=== PATIENT | male | born 1970 | race Caucasian/White ===

== ENCOUNTER 2017-11-21 18:45 | Observation (INO) ==
[2017-11-21] MEDS ORDERED: NITROGLYCERIN SL 0.4 MG TABLET SL PRN (21:12)
[2017-11-21] MEDS: ROSUVASTATIN 10 MG TABLET PO SCH (22:02)
[2017-11-21] MEDS: CARVEDILOL 25 MG TABLET PO SCH (22:02)
[2017-11-21] MEDS: MORPHINE 4 MG/1 ML VIAL IV PRN (22:03)
[2017-11-21] MEDS: ONDANSETRON 4 MG/2 ML VIAL IV PRN (22:03)
[2017-11-22] MEDS: MORPHINE 4 MG/1 ML VIAL IV PRN ×3 (02:22→20:45)
[2017-11-22] MEDS: ONDANSETRON 4 MG/2 ML VIAL IV PRN ×2 (02:23→06:09)
[2017-11-22 03:17] LABS: Basophils % 0.5 % (0.0-0.8); Eosinophils # 0.3 10*3/uL (0.0-0.87); Eosinophils % 3.5 % (0.00-10.9); Hematocrit 37.8 VOL% (42.0-52.0); Immature Granulocytes % 0.4 %; Immature Granulocytes Absolute 0.03 #; Lymphocytes # 2.8 10*3/uL (1.4-4.0); Lymphocytes % 34.1 % (21.2-54.2); Mean Corpuscular HGB Conc 34.4 GM/DL (32-36); Mean Corpuscular Hemoglobin 26 PG (27-34); Mean Corpuscular Volume 76.1 FL (87-102); Mean Platelet Volume 10.5 FL (9.6-12.0); Monocytes # 1.1 10*3/uL (0.11-0.8); Monocytes % 13.9 % (1.7-12.7); Neutrophils # 3.9 10*3/uL (1.4-7.4); Neutrophils % 47.6 % (38.7-73.9); Platelet Count 356 T/CUMM (130-400); Red Blood Count 4.97 MC/CUMM (3.8-5.5); Red Cell Distribution Width 14.6 % (9.3-17.3); White Blood Count 8.2 T/CUMM (4-12)
[2017-11-22 04:07] LABS: Calcium 8.5 MG/DL (8.5-10.1); Osmolality,Calculated 275.7 MOS/KG (273-304); Risk Ratio 4.47; Thyroid Stimulating Hormone 9.56 uIU/ml (0.358-3.74); VLDL CHOLESTEROL 33.2 MG/DL
[2017-11-22] MEDS: CLOPIDOGREL 75 MG TABLET PO SCH (08:45)
[2017-11-22] MEDS: ISOSORBIDE MONONITRATE 30 MG TABLET PO SCH (08:45)
[2017-11-22] MEDS: ASPIRIN EC 81 MG TABLET PO SCH (08:45)
[2017-11-22] MEDS: LISINOPRIL 5 MG TABLET PO SCH (08:46)
[2017-11-22] MEDS: CARVEDILOL 25 MG TABLET PO SCH ×2 (08:46→20:47)
[2017-11-22] MEDS ORDERED: ENOXAPARIN 40 MG/0.4 ML SYRINGE SUBCUT SCH (09:00)
[2017-11-22] MEDS ORDERED: DIAZEPAM 5 MG TABLET PO ONE (09:41)
[2017-11-22] MEDS ORDERED: POTASSIUM CHLORIDE RIDER 10 MEQ in PREMIX 1 EACH IV PRN (09:41)
[2017-11-22] MEDS ORDERED: MAGNESIUM SULF RIDER 2 GM in PREMIX 1 EACH IV PRN (09:41)
[2017-11-22] MEDS ORDERED: diphenhydrAMINE CAP 25 MG CAPSULE PO ONE (09:41)
[2017-11-22] MEDS ORDERED: SODIUM CHLORIDE 0.9% 1,000 ML IV SCH (10:00)
[2017-11-22] MEDS ORDERED: LIDOCAINE 1% 20 ML VIAL ONE (12:55)
[2017-11-22] MEDS ORDERED: MIDAZOLAM 2 MG/2 ML VIAL ONE (13:39)
[2017-11-22] MEDS ORDERED: MEPERIDINE 25 MG/1 ML VIAL ONE ×2 (13:39→13:57)
[2017-11-22] MEDS: FUROSEMIDE 40 MG/4 ML VIAL IV SCH (18:39)
[2017-11-22] MEDS: ROSUVASTATIN 10 MG TABLET PO SCH (20:47)
[2017-11-23 04:56] LABS: Basophils # 0.1 10*3/uL (0.0-0.2); Basophils % 0.7 % (0.0-0.8); Eosinophils # 0.4 10*3/uL (0.0-0.87); Eosinophils % 4.9 % (0.00-10.9); Hemoglobin 11.8 GM/DL (14.0-18.0); Immature Granulocytes % 0.4 %; Immature Granulocytes Absolute 0.03 #; Lymphocytes # 1.9 10*3/uL (1.4-4.0); Lymphocytes % 27.3 % (21.2-54.2); Mean Corpuscular HGB Conc 31.9 GM/DL (32-36); Mean Corpuscular Hemoglobin 25 PG (27-34); Mean Corpuscular Volume 78.4 FL (87-102); Mean Platelet Volume 10.6 FL (9.6-12.0); Monocytes % 13.8 % (1.7-12.7); Neutrophils # 3.7 10*3/uL (1.4-7.4); Neutrophils % 52.9 % (38.7-73.9); Platelet Count 291 T/CUMM (130-400); Red Blood Count 4.72 MC/CUMM (3.8-5.5); Red Cell Distribution Width 14.1 % (9.3-17.3); White Blood Count 7.1 T/CUMM (4-12)
[2017-11-23 05:27] LABS: Calcium 8.5 MG/DL (8.5-10.1); Osmolality,Calculated 273.8 MOS/KG (273-304); Potassium 4.2 MMOL/L (3.5-5.1)
[2017-11-23] MEDS ORDERED: ROSUVASTATIN 20 MG TABLET PO SCH (08:03)
[2017-11-23] MEDS: CARVEDILOL 25 MG TABLET PO SCH (08:07)
[2017-11-23] MEDS: ISOSORBIDE MONONITRATE 30 MG TABLET PO SCH (08:07)
[2017-11-23] MEDS: CLOPIDOGREL 75 MG TABLET PO SCH (08:07)
[2017-11-23] MEDS: LISINOPRIL 5 MG TABLET PO SCH (08:08)
[2017-11-23] MEDS: FUROSEMIDE 40 MG/4 ML VIAL IV SCH (08:08)
[2017-11-23] MEDS: ASPIRIN EC 81 MG TABLET PO SCH (08:08)
[2017-11-23] MEDS ORDERED: FUROSEMIDE 40 MG TABLET PO SCH (09:00)
[2017-11-23 12:01] VITALS: BP 93/52
== END 2017-11-23 13:07 | disposition home or self-care (01) ==
LOC: INTOOBSV 19:53 → N.TELEN 19:53 → SUATTDRO 19:53
PROVIDERS: ADMIT Internal Medicine; ATTEND Internal Medicine
PROC: CLCCHCL (ICD-10-PCS; 2017-11-22 13:45)

== ENCOUNTER 2018-10-11 11:37 | Inpatient (IN) ==
[2018-10-11] MEDS ORDERED: NITROGLYCERIN SL 0.4 MG TABLET SL ONE (11:41)
[2018-10-11] MEDS ORDERED: ASPIRIN 325 MG TABLET ONE (11:41)
[2018-10-11] MEDS ORDERED: METOPROLOL TARTRATE 5 MG/5 ML VIAL IV STA (11:43)
[2018-10-11] MEDS ORDERED: ENOXAPARIN 100 MG/ML SYRINGE SUBCUT STA (11:43)
[2018-10-11] MEDS: NITROGLYCERIN SL 0.4 MG TABLET SL PRN ×2 (11:43→11:50)
[2018-10-11] MEDS ORDERED: ASPIRIN 325 MG TABLET PO STA (11:43)
[2018-10-11 11:58] LABS: Basophils # 0.1 10*3/uL (0.0-0.2); Basophils % 0.6 % (0.0-0.8); Eosinophils # 0.5 10*3/uL (0.0-0.87); Eosinophils % 3.8 % (0.00-10.9); Hematocrit 46.7 VOL% (42.0-52.0); Hemoglobin 14.6 GM/DL (14.0-18.0); Immature Granulocytes % 0.5 %; Immature Granulocytes Absolute 0.07 #; Lymphocytes # 2.7 10*3/uL (1.4-4.0); Mean Corpuscular HGB Conc 31.3 GM/DL (32-36); Mean Corpuscular Hemoglobin 24 PG (27-34); Mean Corpuscular Volume 76.8 FL (87-102); Mean Platelet Volume 10.3 FL (9.6-12.0); Monocytes % 6.8 % (1.7-12.7); Neutrophils # 9.7 10*3/uL (1.4-7.4); Neutrophils % 69.3 % (38.7-73.9); Platelet Count 426 T/CUMM (130-400); Red Blood Count 6.08 MC/CUMM (3.8-5.5); Red Cell Distribution Width 17.9 % (9.3-17.3)
[2018-10-11 12:06] LABS: INR 1.1; PT Patient Result 11.4 SECS
[2018-10-11 12:23] LABS: Albumin 3.8 G/DL (3.4-5.0); Osmolality,Calculated 276.7 MOS/KG (273-304); Potassium 4.9 MMOL/L (3.5-5.1)
[2018-10-11] MEDS ORDERED: LEVOFLOXACIN INJ 500 MG in PREMIX 1 EACH IV STA (13:01)
[2018-10-11] MEDS ORDERED: NITROGLYCERIN SL 0.4 MG TABLET SL PRN (13:13)
[2018-10-11] MEDS ORDERED: ONDANSETRON 4 MG/2 ML VIAL IV PRN (17:13)
[2018-10-11] MEDS ORDERED: ZALEPLON 5 MG CAPSULE PO PRN (17:13)
[2018-10-11] MEDS ORDERED: INFLUENZA VIRUS VACCINE 0.5 ML SYRINGE IM ONE (17:22)
[2018-10-11] MEDS: ISOSORBIDE MONONITRATE 30 MG TABLET PO SCH (17:51)
[2018-10-11] MEDS: CARVEDILOL 25 MG TABLET PO SCH ×2 (17:51→22:32)
[2018-10-11] MEDS: RANOLAZINE 500 MG TABLET PO SCH ×2 (17:52→22:33)
[2018-10-11] MEDS: PANTOPRAZOLE 40 MG TABLET PO SCH (17:53)
[2018-10-11] MEDS: SODIUM CHLORIDE 0.9% 1,000 ML IV SCH (17:55)
[2018-10-11] MEDS: methylPREDNISolone SOD SUC 40 MG/1 ML VIAL IV SCH (22:29)
[2018-10-11] MEDS: ROSUVASTATIN 10 MG TABLET PO SCH (22:29)
[2018-10-12] MEDS: SODIUM CHLORIDE 0.9% 1,000 ML IV SCH (02:21)
[2018-10-12 04:59] LABS: Basophils % 0.2 % (0.0-0.8); Eosinophils % 0.2 % (0.00-10.9); Hematocrit 38.6 VOL% (42.0-52.0); Immature Granulocytes % 0.6 %; Immature Granulocytes Absolute 0.05 #; Lymphocytes # 0.7 10*3/uL (1.4-4.0); Lymphocytes % 8.8 % (21.2-54.2); Mean Corpuscular HGB Conc 31.1 GM/DL (32-36); Mean Corpuscular Hemoglobin 24 PG (27-34); Monocytes # 0.1 10*3/uL (0.11-0.8); Monocytes % 1.4 % (1.7-12.7); Neutrophils # 7.4 10*3/uL (1.4-7.4); Neutrophils % 88.8 % (38.7-73.9); Platelet Count 348 T/CUMM (130-400); Red Blood Count 5.01 MC/CUMM (3.8-5.5); Red Cell Distribution Width 16.5 % (9.3-17.3)
[2018-10-12 05:01] LABS: White Blood Count 8.4 T/CUMM (4-12)
[2018-10-12 05:02] LABS: Calcium 8.4 MG/DL (8.5-10.1); Osmolality,Calculated 272.4 MOS/KG (273-304); Potassium 4.6 MMOL/L (3.5-5.1)
[2018-10-12 05:16] LABS: Risk Ratio 3.47; Thyroid Stimulating Hormone 2.32 uIU/ml (0.358-3.74); VLDL CHOLESTEROL 15.8 MG/DL
[2018-10-12] MEDS ORDERED: FUROSEMIDE 20 MG TABLET PO SCH (09:00)
[2018-10-12] MEDS: methylPREDNISolone SOD SUC 40 MG/1 ML VIAL IV SCH ×2 (09:44→21:01)
[2018-10-12] MEDS: ASPIRIN EC 81 MG TABLET PO SCH (09:50)
[2018-10-12] MEDS: ISOSORBIDE MONONITRATE 30 MG TABLET PO SCH (09:50)
[2018-10-12] MEDS: LISINOPRIL 5 MG TABLET PO SCH (09:51)
[2018-10-12] MEDS: PANTOPRAZOLE 40 MG TABLET PO SCH (09:51)
[2018-10-12] MEDS: RANOLAZINE 500 MG TABLET PO SCH ×2 (09:51→21:03)
[2018-10-12] MEDS: ENOXAPARIN 40 MG/0.4 ML SYRINGE SUBCUT SCH (09:51)
[2018-10-12] MEDS: CLOPIDOGREL 75 MG TABLET PO SCH (09:51)
[2018-10-12] MEDS: CARVEDILOL 25 MG TABLET PO SCH ×2 (09:51→21:33)
[2018-10-12] MEDS: LEVOFLOXACIN INJ 500 MG in PREMIX 1 EACH IV SCH (11:04)
[2018-10-12] MEDS ORDERED: FUROSEMIDE 40 MG/4 ML VIAL IV ONE (11:43)
[2018-10-12] MEDS: FUROSEMIDE 40 MG/4 ML VIAL IV SCH (17:19)
[2018-10-12] MEDS: ROSUVASTATIN 10 MG TABLET PO SCH (21:04)
[2018-10-13 04:40] LABS: Basophils % 0.1 % (0.0-0.8); Hematocrit 37.6 VOL% (42.0-52.0); Hemoglobin 11.6 GM/DL (14.0-18.0); Immature Granulocytes % 1.1 %; Immature Granulocytes Absolute 0.21 #; Lymphocytes # 0.9 10*3/uL (1.4-4.0); Mean Corpuscular HGB Conc 30.9 GM/DL (32-36); Mean Corpuscular Hemoglobin 24 PG (27-34); Mean Corpuscular Volume 76.9 FL (87-102); Mean Platelet Volume 10.8 FL (9.6-12.0); Monocytes # 0.6 10*3/uL (0.11-0.8); Monocytes % 3.4 % (1.7-12.7); Neutrophils # 16.8 10*3/uL (1.4-7.4); Neutrophils % 90.4 % (38.7-73.9); Platelet Count 350 T/CUMM (130-400); Red Blood Count 4.89 MC/CUMM (3.8-5.5); Red Cell Distribution Width 16.7 % (9.3-17.3); White Blood Count 18.6 T/CUMM (4-12)
[2018-10-13 04:59] LABS: Calcium 8.8 MG/DL (8.5-10.1); Osmolality,Calculated 280.8 MOS/KG (273-304); Potassium 3.8 MMOL/L (3.5-5.1)
[2018-10-13] MEDS: methylPREDNISolone SOD SUC 40 MG/1 ML VIAL IV SCH (09:59)
[2018-10-13] MEDS: ENOXAPARIN 40 MG/0.4 ML SYRINGE SUBCUT SCH (09:59)
[2018-10-13] MEDS: LISINOPRIL 5 MG TABLET PO SCH (10:00)
[2018-10-13] MEDS: RANOLAZINE 500 MG TABLET PO SCH ×2 (10:02→21:10)
[2018-10-13] MEDS: ISOSORBIDE MONONITRATE 30 MG TABLET PO SCH (10:04)
[2018-10-13] MEDS: CARVEDILOL 25 MG TABLET PO SCH ×2 (10:04→21:10)
[2018-10-13] MEDS: CLOPIDOGREL 75 MG TABLET PO SCH (10:04)
[2018-10-13] MEDS: PANTOPRAZOLE 40 MG TABLET PO SCH (10:04)
[2018-10-13] MEDS: ASPIRIN EC 81 MG TABLET PO SCH (10:04)
[2018-10-13] MEDS: LEVOFLOXACIN INJ 500 MG in PREMIX 1 EACH IV SCH (10:06)
[2018-10-13] MEDS: FUROSEMIDE 40 MG/4 ML VIAL IV SCH (11:17)
[2018-10-13] MEDS ORDERED: FUROSEMIDE 40 MG TABLET PO SCH (16:00)
[2018-10-13] MEDS: IVABRADINE HCL 5 MG TABLET PO SCH ×2 (17:28→17:33)
[2018-10-13] MEDS: ROSUVASTATIN 10 MG TABLET PO SCH (21:10)
[2018-10-13] MEDS: MORPHINE 4 MG/1 ML VIAL IV PRN (21:17)
[2018-10-14] MEDS: MORPHINE 4 MG/1 ML VIAL IV PRN (04:08)
[2018-10-14 04:32] LABS: Basophils % 0.1 % (0.0-0.8); Hematocrit 40.3 VOL% (42.0-52.0); Hemoglobin 12.7 GM/DL (14.0-18.0); Immature Granulocytes % 1.4 %; Immature Granulocytes Absolute 0.38 #; Lymphocytes # 1.9 10*3/uL (1.4-4.0); Mean Corpuscular HGB Conc 31.5 GM/DL (32-36); Mean Corpuscular Hemoglobin 24 PG (27-34); Mean Corpuscular Volume 76.6 FL (87-102); Monocytes # 1.6 10*3/uL (0.11-0.8); Monocytes % 6.2 % (1.7-12.7); Neutrophils # 22.5 10*3/uL (1.4-7.4); Neutrophils % 85.3 % (38.7-73.9); Platelet Count 415 T/CUMM (130-400); Red Blood Count 5.26 MC/CUMM (3.8-5.5); Red Cell Distribution Width 17.1 % (9.3-17.3); White Blood Count 26.4 T/CUMM (4-12)
[2018-10-14 04:55] LABS: Hypochromasia 1+; Microcytosis Slight; Platelet Estimate Adequate
[2018-10-14 04:56] LABS: Calcium 8.8 MG/DL (8.5-10.1); Osmolality,Calculated 279.7 MOS/KG (273-304); Potassium 3.9 MMOL/L (3.5-5.1)
[2018-10-14] MEDS: CLOPIDOGREL 75 MG TABLET PO SCH (08:55)
[2018-10-14] MEDS: ISOSORBIDE MONONITRATE 30 MG TABLET PO SCH (08:55)
[2018-10-14] MEDS: LISINOPRIL 5 MG TABLET PO SCH (08:55)
[2018-10-14] MEDS: RANOLAZINE 500 MG TABLET PO SCH ×2 (08:55→22:10)
[2018-10-14] MEDS: PANTOPRAZOLE 40 MG TABLET PO SCH (08:56)
[2018-10-14] MEDS: ASPIRIN EC 81 MG TABLET PO SCH (08:56)
[2018-10-14] MEDS: CARVEDILOL 25 MG TABLET PO SCH ×2 (08:56→22:10)
[2018-10-14] MEDS: IVABRADINE HCL 5 MG TABLET PO SCH ×2 (08:56→17:28)
[2018-10-14] MEDS ORDERED: methylPREDNISolone SOD SUC 40 MG/1 ML VIAL IV SCH (09:00)
[2018-10-14] MEDS ORDERED: FUROSEMIDE 40 MG TABLET PO SCH (09:00)
[2018-10-14] MEDS: ENOXAPARIN 40 MG/0.4 ML SYRINGE SUBCUT SCH (09:03)
[2018-10-14] MEDS: LEVOFLOXACIN INJ 500 MG in PREMIX 1 EACH IV SCH (10:00)
[2018-10-14] MEDS: ACETAMINOPHEN 325 MG TABLET PO PRN ×2 (11:57→16:34)
[2018-10-14] MEDS: FUROSEMIDE 40 MG/4 ML VIAL IV SCH (16:35)
[2018-10-14] MEDS: methylPREDNISolone SOD SUC 40 MG/1 ML VIAL IV SCH (17:28)
[2018-10-14] MEDS: ALBUTEROL/IPRATROPIUM 3 ML NEB RESP TX SCH (20:02)
[2018-10-14] MEDS: ROSUVASTATIN 10 MG TABLET PO SCH (22:10)
[2018-10-15] MEDS: methylPREDNISolone SOD SUC 40 MG/1 ML VIAL IV SCH ×3 (00:11→17:38)
[2018-10-15] MEDS: ALBUTEROL/IPRATROPIUM 3 ML NEB RESP TX SCH ×4 (00:43→19:46)
[2018-10-15] MEDS: LISINOPRIL 5 MG TABLET PO SCH ×2 (08:38→21:28)
[2018-10-15] MEDS: IVABRADINE HCL 5 MG TABLET PO SCH ×2 (08:39→17:36)
[2018-10-15] MEDS: ASPIRIN EC 81 MG TABLET PO SCH (08:39)
[2018-10-15] MEDS: CARVEDILOL 25 MG TABLET PO SCH ×2 (08:39→21:28)
[2018-10-15] MEDS: CLOPIDOGREL 75 MG TABLET PO SCH (08:39)
[2018-10-15] MEDS: PANTOPRAZOLE 40 MG TABLET PO SCH (08:39)
[2018-10-15] MEDS: RANOLAZINE 500 MG TABLET PO SCH ×2 (08:39→21:28)
[2018-10-15] MEDS: ISOSORBIDE MONONITRATE 30 MG TABLET PO SCH (08:42)
[2018-10-15] MEDS: ENOXAPARIN 40 MG/0.4 ML SYRINGE SUBCUT SCH (08:44)
[2018-10-15] MEDS: FUROSEMIDE 40 MG/4 ML VIAL IV SCH ×2 (08:48→17:41)
[2018-10-15] MEDS: LEVOFLOXACIN INJ 500 MG in PREMIX 1 EACH IV SCH (09:24)
[2018-10-15] MEDS: ACETAMINOPHEN 325 MG TABLET PO PRN (15:19)
[2018-10-15] MEDS: ROSUVASTATIN 10 MG TABLET PO SCH (21:28)
[2018-10-16] MEDS: methylPREDNISolone SOD SUC 40 MG/1 ML VIAL IV SCH ×2 (00:46→09:16)
[2018-10-16] MEDS: ALBUTEROL/IPRATROPIUM 3 ML NEB RESP TX SCH ×3 (00:55→14:07)
[2018-10-16 04:43] LABS: Basophils % 0.1 % (0.0-0.8); Hematocrit 38.6 VOL% (42.0-52.0); Immature Granulocytes % 1.7 %; Immature Granulocytes Absolute 0.35 #; Lymphocytes # 1.3 10*3/uL (1.4-4.0); Lymphocytes % 6.1 % (21.2-54.2); Mean Corpuscular HGB Conc 31.1 GM/DL (32-36); Mean Corpuscular Hemoglobin 24 PG (27-34); Mean Corpuscular Volume 76.6 FL (87-102); Mean Platelet Volume 11.4 FL (9.6-12.0); Monocytes # 1.2 10*3/uL (0.11-0.8); Neutrophils # 17.9 10*3/uL (1.4-7.4); Neutrophils % 86.1 % (38.7-73.9); Platelet Count 389 T/CUMM (130-400); Red Blood Count 5.04 MC/CUMM (3.8-5.5); Red Cell Distribution Width 17.2 % (9.3-17.3); White Blood Count 20.8 T/CUMM (4-12)
[2018-10-16 05:05] LABS: Calcium 8.5 MG/DL (8.5-10.1); Osmolality,Calculated 285.8 MOS/KG (273-304); Potassium 4.2 MMOL/L (3.5-5.1)
[2018-10-16 05:42] LABS: Hypochromasia 1+; Microcytosis 1+; Ovalocytes Slight
[2018-10-16 05:43] LABS: Platelet Estimate Normal; Target Cells Slight
[2018-10-16] MEDS: PANTOPRAZOLE 40 MG TABLET PO SCH (09:13)
[2018-10-16] MEDS: ISOSORBIDE MONONITRATE 30 MG TABLET PO SCH (09:13)
[2018-10-16] MEDS: LISINOPRIL 5 MG TABLET PO SCH (09:13)
[2018-10-16] MEDS: CARVEDILOL 25 MG TABLET PO SCH (09:14)
[2018-10-16] MEDS: RANOLAZINE 500 MG TABLET PO SCH (09:14)
[2018-10-16] MEDS: IVABRADINE HCL 5 MG TABLET PO SCH (09:14)
[2018-10-16] MEDS: ASPIRIN EC 81 MG TABLET PO SCH (09:14)
[2018-10-16] MEDS: ENOXAPARIN 40 MG/0.4 ML SYRINGE SUBCUT SCH (09:16)
[2018-10-16] MEDS: FUROSEMIDE 40 MG/4 ML VIAL IV SCH (09:18)
[2018-10-16] MEDS: LEVOFLOXACIN INJ 500 MG in PREMIX 1 EACH IV SCH (09:21)
[2018-10-16] MEDS: CLOPIDOGREL 75 MG TABLET PO SCH (09:48)
[2018-10-16 12:55] VITALS: BP 101/61
== END 2018-10-16 15:05 | disposition home or self-care (01) | DRG 202 ==
LOC: EDUNIT# → EDBD → N.ED 11:37 → SUATTDRO 13:19 → N.EDINP 13:19 → N.TELEN 16:56
PROVIDERS: ADMIT Internal Medicine; ATTEND Internal Medicine

== ENCOUNTER 2018-10-25 21:49 | Inpatient (IN) ==
[2018-10-25] MEDS ORDERED: ASPIRIN 325 MG TABLET PO STA (22:03)
[2018-10-25] MEDS ORDERED: SODIUM CHLORIDE 0.9% 500 ML IV STA (22:03)
[2018-10-25] MEDS ORDERED: MAGNESIUM SULF RIDER 4 GM in PREMIX 1 EACH IV PRN (22:24)
[2018-10-25] MEDS ORDERED: MAGNESIUM SULF RIDER 2 GM in PREMIX 1 EACH IV PRN (22:24)
[2018-10-25] MEDS ORDERED: DEXTROSE 5% NACL 0.45% 1,000 ML IV SCH (22:30)
[2018-10-26] MEDS ORDERED: ONDANSETRON 4 MG/2 ML VIAL IV PRN (08:55)
[2018-10-26] MEDS ORDERED: DOCUSATE SODIUM 100 MG CAPSULE PO PRN (08:55)
[2018-10-26] MEDS ORDERED: AMIODARONE INJ 450 MG in DEXTROSE 5% 241 ML IV SCH (09:00)
[2018-10-26] MEDS ORDERED: FUROSEMIDE 40 MG TABLET PO SCH (09:00)
[2018-10-26] MEDS: ASPIRIN EC 81 MG TABLET PO SCH (09:08)
[2018-10-26] MEDS: CLOPIDOGREL 75 MG TABLET PO SCH (09:08)
[2018-10-26] MEDS: LISINOPRIL 5 MG TABLET PO SCH ×2 (09:09→21:03)
[2018-10-26] MEDS: RANOLAZINE 500 MG TABLET PO SCH ×2 (09:09→21:03)
[2018-10-26] MEDS: ISOSORBIDE MONONITRATE 30 MG TABLET PO SCH (09:09)
[2018-10-26] MEDS: PANTOPRAZOLE 40 MG TABLET PO SCH (09:09)
[2018-10-26] MEDS: CARVEDILOL 25 MG TABLET PO SCH ×2 (09:09→21:03)
[2018-10-26] MEDS: ENOXAPARIN 40 MG/0.4 ML SYRINGE SUBCUT SCH (12:12)
[2018-10-26] MEDS: ACETAMINOPHEN 325 MG TABLET PO PRN (12:16)
[2018-10-26] MEDS: AMIODARONE INJ 450 MG in DEXTROSE 5% 241 ML IV SCH ×2 (15:51→20:11)
[2018-10-26] MEDS ORDERED: IVABRADINE HCL 5 MG TABLET PO SCH (17:00)
[2018-10-26] MEDS: ROSUVASTATIN 10 MG TABLET PO SCH (21:03)
[2018-10-27] MEDS ORDERED: LEVALBUTEROL 0.63 MG/3 ML NEB RESP TX STA (03:16)
[2018-10-27] MEDS: NITROGLYCERIN SL 0.4 MG TABLET SL PRN ×2 (04:31→05:30)
[2018-10-27 04:43] LABS: Basophils % 0.3 % (0.0-0.8); Eosinophils # 0.3 10*3/uL (0.0-0.87); Eosinophils % 2.7 % (0.00-10.9); Hematocrit 39.6 VOL% (42.0-52.0); Immature Granulocytes % 0.7 %; Immature Granulocytes Absolute 0.08 #; Lymphocytes # 2.7 10*3/uL (1.4-4.0); Lymphocytes % 23.8 % (21.2-54.2); Mean Corpuscular HGB Conc 30.3 GM/DL (32-36); Mean Corpuscular Hemoglobin 24 PG (27-34); Mean Corpuscular Volume 78.4 FL (87-102); Mean Platelet Volume 10.5 FL (9.6-12.0); Monocytes # 1.3 10*3/uL (0.11-0.8); Monocytes % 11.8 % (1.7-12.7); Neutrophils # 6.9 10*3/uL (1.4-7.4); Neutrophils % 60.7 % (38.7-73.9); Platelet Count 349 T/CUMM (130-400); Red Blood Count 5.05 MC/CUMM (3.8-5.5); Red Cell Distribution Width 18.5 % (9.3-17.3); White Blood Count 11.3 T/CUMM (4-12)
[2018-10-27 05:21] LABS: Bilirubin,Total 0.6 MG/DL (0.2-1.0); Calcium 8.6 MG/DL (8.5-10.1); Osmolality,Calculated 274.8 MOS/KG (273-304); Potassium 4.3 MMOL/L (3.5-5.1); Total Protein 6.9 G/DL (6.4-8.3)
[2018-10-27] MEDS: MORPHINE 4 MG/1 ML VIAL IV PRN ×3 (05:30→22:12)
[2018-10-27] MEDS: AMIODARONE 200 MG TABLET PO SCH ×2 (08:36→21:52)
[2018-10-27] MEDS: CARVEDILOL 25 MG TABLET PO SCH ×2 (08:36→21:52)
[2018-10-27] MEDS: CLOPIDOGREL 75 MG TABLET PO SCH (08:36)
[2018-10-27] MEDS: RANOLAZINE 500 MG TABLET PO SCH ×2 (08:36→21:52)
[2018-10-27] MEDS: LISINOPRIL 5 MG TABLET PO SCH ×2 (08:36→21:52)
[2018-10-27] MEDS: PANTOPRAZOLE 40 MG TABLET PO SCH (08:36)
[2018-10-27] MEDS: ISOSORBIDE MONONITRATE 30 MG TABLET PO SCH (08:37)
[2018-10-27] MEDS: FUROSEMIDE 40 MG/4 ML VIAL IV SCH ×2 (08:37→16:40)
[2018-10-27] MEDS: ASPIRIN EC 81 MG TABLET PO SCH (08:37)
[2018-10-27] MEDS: AMIODARONE INJ 450 MG in DEXTROSE 5% 241 ML IV SCH (08:39)
[2018-10-27] MEDS: ENOXAPARIN 40 MG/0.4 ML SYRINGE SUBCUT SCH (11:07)
[2018-10-27] MEDS: ROSUVASTATIN 10 MG TABLET PO SCH (21:52)
[2018-10-28] MEDS: MORPHINE 4 MG/1 ML VIAL IV PRN ×2 (02:36→06:43)
[2018-10-28 04:22] LABS: Basophils # 0.1 10*3/uL (0.0-0.2); Basophils % 0.5 % (0.0-0.8); Eosinophils # 0.4 10*3/uL (0.0-0.87); Eosinophils % 3.2 % (0.00-10.9); Hematocrit 39.4 VOL% (42.0-52.0); Hemoglobin 12.4 GM/DL (14.0-18.0); Immature Granulocytes % 0.8 %; Immature Granulocytes Absolute 0.09 #; Lymphocytes # 2.2 10*3/uL (1.4-4.0); Lymphocytes % 20.1 % (21.2-54.2); Mean Corpuscular HGB Conc 31.5 GM/DL (32-36); Mean Corpuscular Hemoglobin 24 PG (27-34); Mean Corpuscular Volume 76.4 FL (87-102); Mean Platelet Volume 10.5 FL (9.6-12.0); Monocytes # 1.1 10*3/uL (0.11-0.8); Monocytes % 9.9 % (1.7-12.7); Neutrophils # 7.3 10*3/uL (1.4-7.4); Neutrophils % 65.5 % (38.7-73.9); Platelet Count 325 T/CUMM (130-400); Red Blood Count 5.16 MC/CUMM (3.8-5.5); Red Cell Distribution Width 18.2 % (9.3-17.3); White Blood Count 11.1 T/CUMM (4-12)
[2018-10-28 04:50] LABS: Calcium 8.7 MG/DL (8.5-10.1); Osmolality,Calculated 275.1 MOS/KG (273-304); Potassium 4.2 MMOL/L (3.5-5.1)
[2018-10-28] MEDS: RANOLAZINE 500 MG TABLET PO SCH ×2 (08:52→21:01)
[2018-10-28] MEDS: ASPIRIN EC 81 MG TABLET PO SCH (08:52)
[2018-10-28] MEDS: FUROSEMIDE 40 MG TABLET PO SCH (08:53)
[2018-10-28] MEDS: AMIODARONE 200 MG TABLET PO SCH ×2 (08:53→20:59)
[2018-10-28] MEDS: CLOPIDOGREL 75 MG TABLET PO SCH (08:53)
[2018-10-28] MEDS: PANTOPRAZOLE 40 MG TABLET PO SCH (08:53)
[2018-10-28] MEDS: LISINOPRIL 5 MG TABLET PO SCH ×2 (08:53→21:01)
[2018-10-28] MEDS: ISOSORBIDE MONONITRATE 30 MG TABLET PO SCH (08:53)
[2018-10-28] MEDS: CARVEDILOL 25 MG TABLET PO SCH ×2 (08:53→21:01)
[2018-10-28] MEDS: ENOXAPARIN 40 MG/0.4 ML SYRINGE SUBCUT SCH (11:26)
[2018-10-28] MEDS ORDERED: ALBUTEROL 1.25 MG/3 ML NEB RESP TX PRN (14:19)
[2018-10-28] MEDS: ACETAMINOPHEN 325 MG TABLET PO PRN ×2 (16:08→20:59)
[2018-10-28] MEDS: ROSUVASTATIN 10 MG TABLET PO SCH (21:05)
[2018-10-29] MEDS: NITROGLYCERIN SL 0.4 MG TABLET SL PRN (02:28)
[2018-10-29] MEDS ORDERED: FUROSEMIDE 20 MG/2 ML VIAL IV ONE (02:57)
[2018-10-29] MEDS ORDERED: ZALEPLON 5 MG CAPSULE PO ONE ×2 (02:59→21:30)
[2018-10-29 05:00] LABS: Basophils % 0.3 % (0.0-0.8); Eosinophils # 0.2 10*3/uL (0.0-0.87); Eosinophils % 2.8 % (0.00-10.9); Hematocrit 38.7 VOL% (42.0-52.0); Hemoglobin 12.1 GM/DL (14.0-18.0); Immature Granulocytes % 0.8 %; Immature Granulocytes Absolute 0.07 #; Lymphocytes # 1.6 10*3/uL (1.4-4.0); Lymphocytes % 18.5 % (21.2-54.2); Mean Corpuscular HGB Conc 31.3 GM/DL (32-36); Mean Corpuscular Hemoglobin 24 PG (27-34); Mean Corpuscular Volume 76.8 FL (87-102); Mean Platelet Volume 10.3 FL (9.6-12.0); Monocytes # 0.8 10*3/uL (0.11-0.8); Monocytes % 8.9 % (1.7-12.7); Neutrophils % 68.7 % (38.7-73.9); Platelet Count 323 T/CUMM (130-400); Red Blood Count 5.04 MC/CUMM (3.8-5.5); Red Cell Distribution Width 17.7 % (9.3-17.3); White Blood Count 8.7 T/CUMM (4-12)
[2018-10-29 05:19] LABS: Calcium 8.6 MG/DL (8.5-10.1); Osmolality,Calculated 277.8 MOS/KG (273-304); Potassium 3.9 MMOL/L (3.5-5.1)
[2018-10-29] MEDS: AMIODARONE 200 MG TABLET PO SCH ×2 (09:22→21:30)
[2018-10-29] MEDS: RANOLAZINE 500 MG TABLET PO SCH ×2 (09:22→21:30)
[2018-10-29] MEDS: ASPIRIN EC 81 MG TABLET PO SCH (09:22)
[2018-10-29] MEDS: ISOSORBIDE MONONITRATE 30 MG TABLET PO SCH (09:22)
[2018-10-29] MEDS: CARVEDILOL 25 MG TABLET PO SCH ×2 (09:22→21:30)
[2018-10-29] MEDS: LISINOPRIL 5 MG TABLET PO SCH ×2 (09:22→21:30)
[2018-10-29] MEDS: FUROSEMIDE 40 MG TABLET PO SCH (09:23)
[2018-10-29] MEDS: PANTOPRAZOLE 40 MG TABLET PO SCH (09:23)
[2018-10-29] MEDS: CLOPIDOGREL 75 MG TABLET PO SCH (09:23)
[2018-10-29] MEDS: ENOXAPARIN 40 MG/0.4 ML SYRINGE SUBCUT SCH (12:47)
[2018-10-29] MEDS: ACETAMINOPHEN 325 MG TABLET PO PRN (18:08)
[2018-10-29] MEDS: ROSUVASTATIN 10 MG TABLET PO SCH (21:30)
[2018-10-30 04:45] LABS: Basophils % 0.2 % (0.0-0.8); Eosinophils # 0.2 10*3/uL (0.0-0.87); Eosinophils % 3.8 % (0.00-10.9); Hematocrit 35.2 VOL% (42.0-52.0); Hemoglobin 11.2 GM/DL (14.0-18.0); Immature Granulocytes % 0.7 %; Immature Granulocytes Absolute 0.04 #; Lymphocytes # 1.6 10*3/uL (1.4-4.0); Lymphocytes % 25.5 % (21.2-54.2); Mean Corpuscular HGB Conc 31.8 GM/DL (32-36); Mean Corpuscular Hemoglobin 25 PG (27-34); Mean Corpuscular Volume 77.4 FL (87-102); Mean Platelet Volume 11.1 FL (9.6-12.0); Monocytes # 0.6 10*3/uL (0.11-0.8); Monocytes % 9.7 % (1.7-12.7); Neutrophils # 3.7 10*3/uL (1.4-7.4); Neutrophils % 60.1 % (38.7-73.9); Platelet Count 287 T/CUMM (130-400); Red Blood Count 4.55 MC/CUMM (3.8-5.5); Red Cell Distribution Width 17.9 % (9.3-17.3); White Blood Count 6.1 T/CUMM (4-12)
[2018-10-30 05:02] LABS: Calcium 8.4 MG/DL (8.5-10.1); Osmolality,Calculated 285.4 MOS/KG (273-304); Potassium 3.5 MMOL/L (3.5-5.1)
[2018-10-30] MEDS: RANOLAZINE 500 MG TABLET PO SCH ×2 (09:05→21:05)
[2018-10-30] MEDS: LISINOPRIL 5 MG TABLET PO SCH ×2 (09:05→21:05)
[2018-10-30] MEDS: CLOPIDOGREL 75 MG TABLET PO SCH (09:05)
[2018-10-30] MEDS: ISOSORBIDE MONONITRATE 30 MG TABLET PO SCH (09:05)
[2018-10-30] MEDS: CARVEDILOL 25 MG TABLET PO SCH ×2 (09:05→21:05)
[2018-10-30] MEDS: ASPIRIN EC 81 MG TABLET PO SCH (09:05)
[2018-10-30] MEDS: FUROSEMIDE 40 MG TABLET PO SCH (09:06)
[2018-10-30] MEDS: PANTOPRAZOLE 40 MG TABLET PO SCH (09:06)
[2018-10-30] MEDS: AMIODARONE 200 MG TABLET PO SCH ×2 (09:06→21:05)
[2018-10-30] MEDS: ENOXAPARIN 40 MG/0.4 ML SYRINGE SUBCUT SCH (11:19)
[2018-10-30] MEDS: ROSUVASTATIN 10 MG TABLET PO SCH (21:05)
[2018-10-30] MEDS ORDERED: ZALEPLON 5 MG CAPSULE PO ONE (22:13)
[2018-10-31 06:23] LABS: Basophils % 0.5 % (0.0-0.8); Eosinophils # 0.2 10*3/uL (0.0-0.87); Eosinophils % 2.5 % (0.00-10.9); Hematocrit 40.3 VOL% (42.0-52.0); Hemoglobin 12.8 GM/DL (14.0-18.0); Immature Granulocytes % 0.4 %; Immature Granulocytes Absolute 0.03 #; Lymphocytes # 1.8 10*3/uL (1.4-4.0); Lymphocytes % 22.3 % (21.2-54.2); Mean Corpuscular HGB Conc 31.8 GM/DL (32-36); Mean Corpuscular Hemoglobin 24 PG (27-34); Mean Corpuscular Volume 76.8 FL (87-102); Mean Platelet Volume 10.2 FL (9.6-12.0); Monocytes # 0.7 10*3/uL (0.11-0.8); Monocytes % 8.9 % (1.7-12.7); Neutrophils # 5.4 10*3/uL (1.4-7.4); Neutrophils % 65.4 % (38.7-73.9); Platelet Count 302 T/CUMM (130-400); Red Blood Count 5.25 MC/CUMM (3.8-5.5); White Blood Count 8.2 T/CUMM (4-12)
[2018-10-31 06:37] LABS: Calcium 8.7 MG/DL (8.5-10.1); Osmolality,Calculated 277.8 MOS/KG (273-304); Potassium 4.1 MMOL/L (3.5-5.1)
[2018-10-31] MEDS ORDERED: ROSUVASTATIN 20 MG TABLET PO SCH (07:44)
[2018-10-31 07:45] VITALS: BP 114/76
[2018-10-31] MEDS: ISOSORBIDE MONONITRATE 30 MG TABLET PO SCH (08:49)
[2018-10-31] MEDS: PANTOPRAZOLE 40 MG TABLET PO SCH (08:49)
[2018-10-31] MEDS: ASPIRIN EC 81 MG TABLET PO SCH (08:49)
[2018-10-31] MEDS: CLOPIDOGREL 75 MG TABLET PO SCH (08:49)
[2018-10-31] MEDS: RANOLAZINE 500 MG TABLET PO SCH (08:50)
[2018-10-31] MEDS: CARVEDILOL 25 MG TABLET PO SCH (08:50)
[2018-10-31] MEDS: LISINOPRIL 5 MG TABLET PO SCH (08:50)
[2018-10-31] MEDS ORDERED: AMIODARONE 200 MG TABLET PO SCH (09:00)
[2018-10-31] MEDS ORDERED: FUROSEMIDE 40 MG TABLET PO SCH (09:00)
== END 2018-10-31 13:20 | disposition home or self-care (01) | DRG 897 ==
LOC: EDBD → EDUNIT# → N.ED 21:49 → N.EDINP 21:49 → N.TELEN 23:22
PROVIDERS: ADMIT Internal Medicine Cardiovascular Disease; ATTEND Internal Medicine Cardiovascular Disease

== ENCOUNTER 2019-03-24 16:00 | Inpatient (IN) ==
[2019-03-24] MEDS ORDERED: FUROSEMIDE 100 MG/10 ML VIAL IV STA (16:36)
[2019-03-24 16:40] LABS: Basophils # 0.1 10*3/uL (0.0-0.2); Basophils % 0.8 % (0.0-0.8); Eosinophils # 0.4 10*3/uL (0.0-0.87); Eosinophils % 5.6 % (0.00-10.9); Hematocrit 44.5 VOL% (42.0-52.0); Hemoglobin 13.8 GM/DL (14.0-18.0); Immature Granulocytes % 0.4 %; Immature Granulocytes Absolute 0.03 #; Lymphocytes # 2.1 10*3/uL (1.4-4.0); Lymphocytes % 26.8 % (21.2-54.2); Mean Platelet Volume 10.6 FL (9.6-12.0); Monocytes % 8.8 % (1.7-12.7); Neutrophils % 57.6 % (38.7-73.9); Platelet Count 357 T/CUMM (130-400); Red Blood Count 5.78 MC/CUMM (3.8-5.5); Red Cell Distribution Width 15.5 % (9.3-17.3); White Blood Count 7.8 T/CUMM (4-12)
[2019-03-24 18:26] LABS: Bilirubin,Total 0.8 MG/DL (0.2-1.0); Calcium 8.9 MG/DL (8.5-10.1); Osmolality,Calculated 284.1 MOS/KG (273-304); Total Protein 7.7 G/DL (6.4-8.3)
[2019-03-24] MEDS ORDERED: ACETAMINOPHEN 325 MG TABLET PO PRN (20:06)
[2019-03-24] MEDS ORDERED: DOCUSATE SODIUM 100 MG CAPSULE PO PRN (20:06)
[2019-03-24] MEDS ORDERED: ONDANSETRON 4 MG/2 ML VIAL IV PRN (20:06)
[2019-03-24] MEDS ORDERED: guaiFENesin/DM ER 600-30 MG TABLET PO PRN (20:06)
[2019-03-24] MEDS ORDERED: NITROGLYCERIN SL 0.4 MG TABLET SL PRN (20:13)
[2019-03-24 21:40] LABS: Troponin I < 0.015 NG/ML (0.00-0.045)
[2019-03-24] MEDS: ROSUVASTATIN 20 MG TABLET PO SCH (21:43)
[2019-03-24] MEDS: ENOXAPARIN 40 MG/0.4 ML SYRINGE SUBCUT SCH (21:43)
[2019-03-24] MEDS: CARVEDILOL 25 MG TABLET PO SCH (21:44)
[2019-03-24] MEDS: RANOLAZINE 500 MG TABLET PO SCH (21:44)
[2019-03-24] MEDS: FUROSEMIDE 40 MG/4 ML VIAL IV SCH (21:46)
[2019-03-24] MEDS: ALBUTEROL/IPRATROPIUM 3 ML NEB RESP TX SCH (23:00)
[2019-03-25] MEDS: FUROSEMIDE 40 MG/4 ML VIAL IV SCH ×4 (02:34→22:18)
[2019-03-25] MEDS: ALBUTEROL/IPRATROPIUM 3 ML NEB RESP TX SCH ×5 (02:35→20:03)
[2019-03-25 05:16] LABS: Basophils # 0.1 10*3/uL (0.0-0.2); Basophils % 0.6 % (0.0-0.8); Eosinophils # 0.4 10*3/uL (0.0-0.87); Eosinophils % 5.1 % (0.00-10.9); Hematocrit 39.9 VOL% (42.0-52.0); Hemoglobin 12.7 GM/DL (14.0-18.0); Immature Granulocytes % 0.4 %; Immature Granulocytes Absolute 0.03 #; Lymphocytes # 1.8 10*3/uL (1.4-4.0); Lymphocytes % 21.9 % (21.2-54.2); Mean Corpuscular HGB Conc 31.8 GM/DL (32-36); Mean Corpuscular Volume 76.4 FL (87-102); Mean Platelet Volume 11.2 FL (9.6-12.0); Monocytes % 10.7 % (1.7-12.7); Neutrophils % 61.3 % (38.7-73.9); Platelet Count 314 T/CUMM (130-400); Red Blood Count 5.22 MC/CUMM (3.8-5.5); Red Cell Distribution Width 15.3 % (9.3-17.3); White Blood Count 8.1 T/CUMM (4-12)
[2019-03-25 05:25] LABS: Troponin I < 0.015 NG/ML (0.00-0.045)
[2019-03-25 05:27] LABS: Calcium 8.5 MG/DL (8.5-10.1)
[2019-03-25] MEDS: RANOLAZINE 500 MG TABLET PO SCH ×2 (08:45→22:18)
[2019-03-25] MEDS: AMIODARONE 200 MG TABLET PO SCH (08:45)
[2019-03-25] MEDS: CLOPIDOGREL 75 MG TABLET PO SCH (08:45)
[2019-03-25] MEDS: CARVEDILOL 25 MG TABLET PO SCH ×2 (08:46→17:20)
[2019-03-25] MEDS: LISINOPRIL 5 MG TABLET PO SCH (08:46)
[2019-03-25] MEDS: ASPIRIN EC 81 MG TABLET PO SCH (08:46)
[2019-03-25] MEDS: PANTOPRAZOLE 40 MG TABLET PO SCH (08:46)
[2019-03-25 12:21] LABS: Troponin I < 0.015 NG/ML (0.00-0.045)
[2019-03-25] MEDS ORDERED: metOLazone 5 MG TABLET PO SCH ×2 (14:00→20:00)
[2019-03-25] MEDS: POTASSIUM CHLORIDE 20 MEQ TABLET PO SCH ×2 (15:03→22:18)
[2019-03-25] MEDS: ROSUVASTATIN 20 MG TABLET PO SCH (22:15)
[2019-03-25] MEDS: ISOSORBIDE MONONITRATE 30 MG TABLET PO SCH (22:18)
[2019-03-25] MEDS: ENOXAPARIN 40 MG/0.4 ML SYRINGE SUBCUT SCH (22:19)
[2019-03-26] MEDS: ALBUTEROL/IPRATROPIUM 3 ML NEB RESP TX SCH ×7 (00:08→23:58)
[2019-03-26] MEDS: FUROSEMIDE 40 MG/4 ML VIAL IV SCH ×4 (04:12→20:58)
[2019-03-26 04:59] LABS: Basophils # 0.1 10*3/uL (0.0-0.2); Basophils % 0.6 % (0.0-0.8); Eosinophils # 0.2 10*3/uL (0.0-0.87); Eosinophils % 2.1 % (0.00-10.9); Hematocrit 41.1 VOL% (42.0-52.0); Hemoglobin 13.2 GM/DL (14.0-18.0); Immature Granulocytes % 0.4 %; Immature Granulocytes Absolute 0.04 #; Lymphocytes # 1.4 10*3/uL (1.4-4.0); Lymphocytes % 14.9 % (21.2-54.2); Mean Corpuscular HGB Conc 32.1 GM/DL (32-36); Mean Corpuscular Volume 74.7 FL (87-102); Mean Platelet Volume 10.7 FL (9.6-12.0); Monocytes % 9.8 % (1.7-12.7); Neutrophils % 72.2 % (38.7-73.9); Platelet Count 347 T/CUMM (130-400); Red Cell Distribution Width 14.9 % (9.3-17.3); White Blood Count 9.7 T/CUMM (4-12)
[2019-03-26 05:20] LABS: Calcium 9.5 MG/DL (8.5-10.1); Osmolality,Calculated 273.4 MOS/KG (273-304)
[2019-03-26] MEDS: CARVEDILOL 25 MG TABLET PO SCH ×2 (09:36→16:34)
[2019-03-26] MEDS: SPIRONOLACTONE 25 MG TABLET PO SCH (09:38)
[2019-03-26] MEDS: AMIODARONE 200 MG TABLET PO SCH (09:38)
[2019-03-26] MEDS: ASPIRIN EC 81 MG TABLET PO SCH (09:38)
[2019-03-26] MEDS: PANTOPRAZOLE 40 MG TABLET PO SCH (09:39)
[2019-03-26] MEDS: RANOLAZINE 500 MG TABLET PO SCH ×2 (09:40→20:50)
[2019-03-26] MEDS: CLOPIDOGREL 75 MG TABLET PO SCH (09:40)
[2019-03-26] MEDS: POTASSIUM CHLORIDE 20 MEQ TABLET PO SCH ×3 (09:46→20:50)
[2019-03-26] MEDS: POTASSIUM CHLORIDE RIDER 10 MEQ in PREMIX 1 EACH IV PRN ×3 (09:48→14:34)
[2019-03-26] MEDS: LISINOPRIL 5 MG TABLET PO SCH (09:51)
[2019-03-26] MEDS: ROSUVASTATIN 20 MG TABLET PO SCH (20:50)
[2019-03-26] MEDS: ENOXAPARIN 40 MG/0.4 ML SYRINGE SUBCUT SCH (20:53)
[2019-03-26] MEDS: ISOSORBIDE MONONITRATE 30 MG TABLET PO SCH (20:58)
[2019-03-27] MEDS: FUROSEMIDE 40 MG/4 ML VIAL IV SCH ×3 (03:00→16:07)
[2019-03-27] MEDS: ALBUTEROL/IPRATROPIUM 3 ML NEB RESP TX SCH ×5 (04:10→19:23)
[2019-03-27] MEDS: SPIRONOLACTONE 25 MG TABLET PO SCH (10:21)
[2019-03-27] MEDS: RANOLAZINE 500 MG TABLET PO SCH ×2 (10:22→21:50)
[2019-03-27] MEDS: POTASSIUM CHLORIDE 20 MEQ TABLET PO SCH ×3 (10:22→21:51)
[2019-03-27] MEDS: ASPIRIN EC 81 MG TABLET PO SCH (10:23)
[2019-03-27] MEDS: CLOPIDOGREL 75 MG TABLET PO SCH (10:23)
[2019-03-27] MEDS: AMIODARONE 200 MG TABLET PO SCH (10:23)
[2019-03-27] MEDS: PANTOPRAZOLE 40 MG TABLET PO SCH (10:23)
[2019-03-27] MEDS: CARVEDILOL 25 MG TABLET PO SCH ×2 (10:23→16:07)
[2019-03-27] MEDS: ISOSORBIDE MONONITRATE 30 MG TABLET PO SCH (21:50)
[2019-03-27] MEDS: ROSUVASTATIN 20 MG TABLET PO SCH (21:51)
[2019-03-27] MEDS: ENOXAPARIN 40 MG/0.4 ML SYRINGE SUBCUT SCH (21:51)
[2019-03-28] MEDS: ALBUTEROL/IPRATROPIUM 3 ML NEB RESP TX SCH ×7 (00:51→23:59)
[2019-03-28 05:18] LABS: Calcium 9.4 MG/DL (8.5-10.1); Osmolality,Calculated 276.7 MOS/KG (273-304)
[2019-03-28] MEDS ORDERED: ceFAZolin 1,000 MG in SYRINGE 1 EACH IV ONE (06:00)
[2019-03-28] MEDS: POTASSIUM CHLORIDE 20 MEQ TABLET PO SCH ×2 (07:38→11:54)
[2019-03-28] MEDS: CARVEDILOL 25 MG TABLET PO SCH ×2 (07:38→16:45)
[2019-03-28] MEDS ORDERED: HEPARIN 5,000 UNIT/1 ML VIAL ONE (08:59)
[2019-03-28] MEDS ORDERED: TISSUE ADHESIVE 1 EACH APPLICATOR TOP ONE (08:59)
[2019-03-28] MEDS ORDERED: LIDOCAINE 1% 20 ML VIAL ONE (09:00)
[2019-03-28] MEDS ORDERED: FUROSEMIDE 40 MG TABLET PO SCH (09:00)
[2019-03-28] MEDS ORDERED: LACTATED RINGERS 1,000 ML IV SCH (10:00)
[2019-03-28] MEDS ORDERED: PROPOFOL 200 MG/20 ML VIAL IV ONE (10:58)
[2019-03-28] MEDS ORDERED: MIDAZOLAM 2 MG/2 ML VIAL ONE (10:59)
[2019-03-28] MEDS ORDERED: fentaNYL 100 MCG/2 ML VIAL ONE (10:59)
[2019-03-28] MEDS ORDERED: SODIUM CHLORIDE 0.9% 100 ML IV ONE (10:59)
[2019-03-28] MEDS ORDERED: ETOMIDATE 40 MG/20 ML VIAL IV ONE (10:59)
[2019-03-28] MEDS ORDERED: ONDANSETRON 4 MG/2 ML VIAL IV PRN (11:08)
[2019-03-28] MEDS ORDERED: HYDROmorphone 2 MG/1 ML VIAL IV PRN (11:08)
[2019-03-28] MEDS: PANTOPRAZOLE 40 MG TABLET PO SCH (11:52)
[2019-03-28] MEDS: CLOPIDOGREL 75 MG TABLET PO SCH (11:52)
[2019-03-28] MEDS: SPIRONOLACTONE 25 MG TABLET PO SCH (11:52)
[2019-03-28] MEDS: RANOLAZINE 500 MG TABLET PO SCH ×2 (11:53→20:53)
[2019-03-28] MEDS: ASPIRIN EC 81 MG TABLET PO SCH (11:53)
[2019-03-28] MEDS: AMIODARONE 200 MG TABLET PO SCH (11:53)
[2019-03-28] MEDS: LISINOPRIL 5 MG TABLET PO SCH (11:55)
[2019-03-28] MEDS: ROSUVASTATIN 20 MG TABLET PO SCH (20:52)
[2019-03-28] MEDS: ENOXAPARIN 40 MG/0.4 ML SYRINGE SUBCUT SCH (20:53)
[2019-03-28] MEDS: ISOSORBIDE MONONITRATE 30 MG TABLET PO SCH (20:53)
[2019-03-29] MEDS: ALBUTEROL/IPRATROPIUM 3 ML NEB RESP TX SCH ×3 (04:01→12:08)
[2019-03-29 06:09] LABS: Basophils # 0.1 10*3/uL (0.0-0.2); Basophils % 0.8 % (0.0-0.8); Eosinophils # 0.3 10*3/uL (0.0-0.87); Eosinophils % 5.4 % (0.00-10.9); Hematocrit 37.7 VOL% (42.0-52.0); Hemoglobin 11.8 GM/DL (14.0-18.0); Immature Granulocytes % 0.6 %; Immature Granulocytes Absolute 0.04 #; Lymphocytes # 1.9 10*3/uL (1.4-4.0); Lymphocytes % 30.1 % (21.2-54.2); Mean Corpuscular HGB Conc 31.3 GM/DL (32-36); Mean Corpuscular Volume 75.9 FL (87-102); Neutrophils % 50.1 % (38.7-73.9); Platelet Count 361 T/CUMM (130-400); Red Blood Count 4.97 MC/CUMM (3.8-5.5); Red Cell Distribution Width 15.1 % (9.3-17.3); White Blood Count 6.2 T/CUMM (4-12)
[2019-03-29 06:41] LABS: Calcium 8.9 MG/DL (8.5-10.1); Osmolality,Calculated 274.5 MOS/KG (273-304)
[2019-03-29] MEDS ORDERED: FUROSEMIDE 40 MG TABLET PO SCH (09:00)
[2019-03-29] MEDS: CLOPIDOGREL 75 MG TABLET PO SCH (09:12)
[2019-03-29] MEDS: ASPIRIN EC 81 MG TABLET PO SCH (09:13)
[2019-03-29] MEDS: RANOLAZINE 500 MG TABLET PO SCH (09:13)
[2019-03-29] MEDS: CARVEDILOL 25 MG TABLET PO SCH (09:13)
[2019-03-29] MEDS: PANTOPRAZOLE 40 MG TABLET PO SCH (09:13)
[2019-03-29] MEDS: AMIODARONE 200 MG TABLET PO SCH (09:14)
[2019-03-29] MEDS: SPIRONOLACTONE 25 MG TABLET PO SCH (09:15)
[2019-03-29 11:47] VITALS: BP 124/68
== END 2019-03-29 15:58 | disposition home or self-care (01) | DRG 263 ==
LOC: N.ED 16:00 → N.EDINP 19:55 → SUATTDRO 19:55 → N.TELES 21:01
PROVIDERS: ADMIT Family Medicine; ATTEND Internal Medicine